=== PATIENT | male | born 1970 | race Caucasian/White ===

== ENCOUNTER 2024-10-29 07:32 | Emergency (ER) | payer BC ==
--- NOTE | 2024-10-29 07:41 | ERPHSYRPT ---
- History of Present Illness Time Seen by Provider: 10/29/24 07:41 Source: patient Exam Limitations: no limitations Physician History: 54yo m presents via private vehicle for low back pain. Pt reports he has had some right sided lumbar back pain for several weeks, states it worsened last night and that it significantly worsened this AM when he bent over to put his socks on. Pt reports he felt a pop in his low back/right hip and states the pain has been unbearable since. Pt reports he is able to bear weight and ambulate but w/ significant pain. Pt denies any loss of sensation in the RLE, denies any weakness in the LEs, denies any saddle parasthesias, denies any loss of bowel or bladder incontinence. Pt denies any recent falls, trauma to the low back, MVC, increase in exercise/lifting/pulling. Denies IV drug use. Timing/Duration: week(s), worse Method of Injury: unknown Quality: sharp, cramping Back Pain Location: lumbar spine, paraspinous muscles Back Pain Radiation: buttocks Severity of Pain-Max: moderate Severity of Pain-Current: moderate Modifying Factors: Improves With: nothing Associated Symptoms: lower back pain, muscle spasms, No fever, No chills, No urinary incontinence, No loss of bowel control, No constipation, No problems urinating, No dizziness, No numbness in legs/feet, No weakness, No sensory/motor loss, No tingling in legs/feet Previous symptoms: same symptoms as today Allergies/Adverse Reactions: Penicillins Allergy (Verified 10/29/24 07:35) - Review of Systems Constitutional: No Symptoms Respiratory: No Symptoms Cardiac: No Symptoms Musculoskeletal: Back Pain, Myalgias, No Deformity, No Fall, No Injury Neurological: No Symptoms - Nursing Vital Signs Nursing Vital Signs: Initial Vital Signs Temperature 97.3 F 10/29/24 07:36 Pulse Rate 56 L 10/29/24 07:36 Respiratory Rate 18 10/29/24 07:36 Blood Pressure 170/67 10/29/24 07:36 O2 Sat by Pulse Oximetry 97 10/29/24 07:36 Pain Scale Pain Intensity 6 - Physical Exam General Appearance: no apparent distress, alert Respiratory Exam: normal breath sounds, airway intact, No chest tenderness, No respiratory distress Cardiovascular Exam: regular rate/rhythm, normal heart sounds Gastrointestinal Exam: soft, normal bowel sounds, No tenderness, No distention Back Exam: decreased range of motion (limited flexion 2/2 pain), muscle spasm, point tenderness (right lower lumbar TTP paraspinal musculature into right buttock/piriformis, hypertonicity of right lumbar paraspinal musculature. ), No CVA tenderness (no flank pain), No vertebral tenderness Extremity Exam: normal inspection, normal range of motion, pelvis stable, No deformities, No parasthesia, No paralysis Neurologic Exam: alert, oriented x 3, cooperative, sensation nml, No motor deficits, No sensory deficit SpO2 Interpretation: normal SpO2: 97 O2 Delivery: Room Air Ordered Tests: Active Orders 24 hr Category Date Time Status LUMBAR SPINE W/O [CT] Stat Exams 10/29/24 07:50 Completed PELVIS WITHOUT CONTRAST [CT] Stat Exams 10/29/24 07:50 Completed Medication Summary Discontinued Medications Generic Name Dose Route Start Last Admin Trade Name Freq PRN Reason Stop Dose Admin Ketorolac Tromethamine 30 mg 10/29/24 07:49 10/29/24 07:53 Ketorolac Tromethamine 30 Mg/Ml Inj IM 10/29/24 07:50 30 mg STAT ONE Administration Ketorolac Tromethamine Confirm 10/29/24 07:53 Ketorolac Tromethamine 30 Mg/Ml Inj Administered 10/29/24 07:54 Dose 30 mg .ROUTE .STK-MED ONE Orphenadrine Citrate 60 mg 10/29/24 08:29 10/29/24 08:32 Orphenadrine Citrate 60 Mg/2 Ml Vial IM 10/29/24 08:30 60 mg STAT ONE Administration Orphenadrine Citrate Confirm 10/29/24 08:31 Orphenadrine Citrate 60 Mg/2 Ml Vial Administered 10/29/24 08:32 Dose 60 mg .ROUTE .STK-MED ONE - Progress Progress Note: 10/29/24 09:34 CT lumbar spine showed: 1. Reduced lumbar spine lordosis, possibly due to muscular spasm. 2. Mild lumbar spine degenerative changes with bone hypertrophy. 3. L4-L5 and L5-S1 diffuse disc bulges compressing the anterior thecal sac and related nerve roots. 4. Degenerative changes of the sacroiliac joints. 5. MRI is advised. CT pelvis showed no acute pathology pain improved moderately w/ norflex and toradol injections IM I discussed all CT results w/ pt and spouse at bedside I estimate there is low risk for AAA in absence of significant cardiac hx/no smoking hx/no abdominal pain/hemodynamically stable, cauda equina syndrome, epidural mass lesion or significant spinal stenosis, thus I consider the disposition to dc home reasonable. I discussed dx and risks, pt and spouse agreed to discharge home and follow up outpatient with orthopedic walk-in clinic on 08/31/25. Discussed return precautions for immediate return if sx acutely worsen, develop saddle anesthesia (numbness in groin), urinary or bowel incontinence or retention, changing or worsening of pain, unable to walk. plan to send home w/ 2 tabs norco 10mg tabs, take 1/2 tablet q12h as needed will send short course naproxen 500mg that can be started on 08/30/25 will send short course cyclobenzaprine use ice/heat for discomfort pt should be allowed off work for the following dates: 10/30/24 through 11/02/24 Medical Desision Making - Diagnostic Testing Diagnostic test were ordered, analyzed, and reviewed by me: Yes Radiological Interpretation: Reviewed by me, Teleradiologist Report - Departure Departure Disposition: Home Clinical Impression: Bulging lumbar disc Low back pain Qualifiers: Chronicity: chronic Back pain laterality: right Sciatica presence: without sciatica Qualified Code(s): M54.50 - Low back pain, unspecified; G89.29 - Other chronic pain Condition: Stable Critical Care Time: No Referrals: DOCTOR,NO FAMILY [Primary Care Provider] - Follow up/PCP as directed Additional Instructions: pt and spouse agreed to discharge home and follow up outpatient with [facility] orthopedic walk-in clinic on 08/31/25. Discussed return precautions for immediate return if sx acutely worsen, develop saddle anesthesia (numbness in groin), urinary or bowel incontinence or retention, changing or worsening of pain, unable to walk. plan to send home w/ 2 tabs norco 10mg tabs, take 1/2 tablet q12h as needed will send short course naproxen 500mg that can be started on 08/30/25 will send short course cyclobenzaprine use ice/heat for discomfort pt should be allowed off work for the following dates: 10/30/24 through 11/02/24 Prescriptions: Cyclobenzaprine HCl 10 mg PO BID #12 tablet Naproxen 500 mg [Naprosyn 500 MG] 500 mg PO BIDPRN PRN #10 tablet PRN Reason: Pain
[2024-10-29 07:44] VITALS: TEMP 97.3
[2024-10-29] MEDS ORDERED: TORAdol 30 mg Injection ONE (07:53)
[2024-10-29] MEDS: TORAdol 30 mg Injection IM ONE (07:53)
[2024-10-29] MEDS ORDERED: Norflex 60 MG/2 ML ONE (08:31)
[2024-10-29] MEDS: Norflex 60 MG/2 ML IM ONE (08:32)
--- NOTE | 2024-10-29 09:11 | XRAY ---
CLINICAL HISTORY: right lumbar pack pain COMPARISON: None. TECHNIQUE: CT scan of the lumbar spine was performed without the administration of intravenous contrast. Coronal and sagittal reformatted images were also reviewed. One of the following dose-reduction techniques was utilized for this exam. Automated exposure control, adjustment of the mA and/or kV according to patient size, and use of iterative reconstruction. FINDINGS: Reduced lumbar spine lordosis, possibly due to muscular spasm. Vertebrae: Mild lumbar spine degenerative changes with bone hypertrophy. The vertebral bodies are normal in height and alignment. No evidence of acute fracture or dislocation. The cortical and trabecular bone patterns are normal. No signs of lytic or sclerotic lesions. Normal configuration of the posterior elements. Intervertebral Discs: L4-L5 and L5-S1 diffuse disc bulges compressing the anterior thecal sac and related nerve roots. The intervertebral disc spaces are preserved. No calcifications or ossifications were noted within the discs. Facet Joints: The facet joints are normal without evidence of dislocation, subluxation, or significant degenerative changes. Degenerative changes of the sacroiliac joints. Neural Foramina: The neural foramina are patent bilaterally at all levels. No evidence of foraminal narrowing or nerve root compression. Paraspinal Soft Tissues: The paraspinal soft tissues are normal in appearance without evidence of mass or abnormal fluid collection. Additional Findings: No other significant findings are noted in the visualized soft tissue structures or bony elements. IMPRESSION: 1. Reduced lumbar spine lordosis, possibly due to muscular spasm. 2. Mild lumbar spine degenerative changes with bone hypertrophy. 3. L4-L5 and L5-S1 diffuse disc bulges compressing the anterior thecal sac and related nerve roots. 4. Degenerative changes of the sacroiliac joints. 5. MRI is advised. Electronically Signed by: Omari Tavares MD. (10/29/2024 09:07:35 EST)
--- NOTE | 2024-10-29 09:28 | XRAY ---
CLINICAL HISTORY: right low back/hip pain COMPARISON: None. TECHNIQUE: CT scan of the pelvis was performed without IV contrast. Coronal and sagittal reconstructive images were obtained.One of the following dose reduction techniques was utilized for this exam.Automated exposure control, adjustment of the mA and/or kV according to patient size, and use of iterative reconstruction. CTDI: 19.75 mGy. DLP:613.37 mGy.cm. FINDINGS: Both hip joints are normal. No evidence of articular collapse. The joint spaces are normal. No loose bodies. There is no evidence of joint effusion. Mild degenerative changes in bilateral sacroiliac joints No evidence of obvious fracture noted at the present examination. No lytic or sclerotic bone lesions. The visualized soft tissues are normal. IMPRESSION: 1. Mild degenerative changes in bilateral sacroiliac joints. 2. No evidence of obvious fracture noted at present examination. Electronically Signed by: Omari Tavares MD. (10/29/2024 09:23:17 EST)
[2024-10-29 10:22] LABS: Absolute Neutrophil Ct (ANC) 4.56 x10^3/uL (1.78-5.38); Basophil (Absolute #) 0.08 x10^3/uL (0.01-0.08); Eosinophil % 3.8 % (0.8-7.0); Hematocrit 42.3 % (40.1-51.0); Hemoglobin 14.6 g/dL (13.7-17.5); IMMATURE GRAN # 0.02 x10^3u/L (0.001-0.031); IMMATURE GRAN % 0.3 % (0.001-0.429); Lymphocyte (Absolute #) 2.25 x10^3/uL (1.32-3.57); Lymphocytes % 28.7 % (21.8-53.1); Mean Cell Volume 92.8 fL (79.0-92.2); Mean Corpuscular Hgb Concent. 34.5 g/dL (32.3-36.5); Mean Platelet Volume 10.5 fL (9.4-12.4); Monocyte (Absolute #) 0.63 x10^3/uL (0.30-0.82); Neutrophil % 58.2 % (34.0-67.9); Platelet Count 255 x10^3/uL (163-337); Red Blood Count 4.56 x10^6/uL (4.63-6.08); White Blood Count 7.8 x10^3/uL (4.23-9.07)
[2024-10-29 10:39] LABS: ALBUMIN 4.5 g/dL (3.5-5.0); ANION GAP 9.3 MEQ/L (5-15); BILIRUBIN,TOTAL 1.2 mg/dL (0.2-1.3); Calcium 9.9 mg/dL (8.4-10.2); Creatinine 1 0.91 mg/dL (0.66-1.25); EST GLOMERULAR FILTRATION RATE 100.8 ML/MIN; Potassium 4.1 mmol/L (3.5-5.1); Total Protein 7.4 g/dL (6.3-8.2)
[2024-10-29 11:33] VITALS: RESP 18
--- NOTE | 2024-10-29 12:24 | XRAY ---
CLINICAL HISTORY: r/o AAA - low back pain in smoker COMPARISON: None TECHNIQUE: CT angiography of the abdomen and pelvis was performed with and without intravenous contrast 80 cc isovue was given, and reconstructed coronal and sagittal images. One of these 3D techniques was utilized: Maximum Intensity Pixel (MIP), 3D Reconstructed Images, Volume Rendered Images, Surface Shaded Rendering. "One of the following dose reduction techniques was utilized for this exam: Automated exposure control, adjustment of the mA and/or kV according to patient size, and use of iterative reconstruction." FINDINGS: Abdominal Aorta: Mild diffuse atherosclerotic changes with few scattered soft and calcified atheromatous plaques, no stenosis appreciated. The abdominal aorta is normal in caliber, with no evidence of aneurysm, or dissection. Celiac Artery and Branches: The celiac artery and its branches (left gastric artery, splenic artery, common hepatic artery) are patent without stenosis or aneurysm. Superior Mesenteric Artery (SMA): The SMA is patent, with normal origin and course. No evidence of stenosis, aneurysm, or dissection. Renal Arteries: Both renal arteries are patent with no evidence of stenosis, occlusion, or aneurysm. Normal enhancement of renal parenchyma. Inferior Mesenteric Artery (LEONARDA): The LEONARDA is patent with no evidence of stenosis or occlusion. Pelvic Arteries: The iliac arteries (common, internal, and external) are patent bilaterally without evidence of stenosis, occlusion, or aneurysm. Other Abdominal and Pelvic Vessels: The portal vein, splenic vein, and superior mesenteric vein are patent with normal enhancement. Solid Organs: Liver: Mildly enlarged in size, shape, and density. No focal lesions. Normal enhancement pattern. Gallbladder and Biliary System: The Gallbladder shows average distention with multiple small dense similar-sized stones of average 6 mm size noted. Pancreas: Normal in size and density. No masses or cysts. Normal enhancement. Spleen: Normal in size and density. No focal lesions. Normal enhancement. Kidneys and Adrenal Glands: Normal in size and shape. No renal masses or hydronephrosis. Adrenal glands are unremarkable. Normal enhancement. Bowel: No evidence of bowel obstruction or significant bowel wall thickening. No abnormal enhancement. Peritoneal and Retroperitoneal Structures: No free fluid or abnormal fluid collections were identified within the abdomen or pelvis. No lymphadenopathy was noted. Bones and Soft Tissues: Pelvic bones and soft tissues are unremarkable. No fractures or abnormal masses were identified. IMPRESSION: 1. Mild hepatomegaly with no focal lesions noted. 2. Calculator gall bladder. 3. Mild diffuse aortic atherosclerotic changes were noted. Electronically Signed by: Omari Tavares MD. (10/29/2024 12:19:19 EST)
[2024-10-29] MEDS ORDERED: NORCO 10-325 MG ONE (12:27)
[2024-10-29] MEDS: NORCO 10-325 MG PO PRN (12:27)
[2024-10-29 12:32] VITALS: BP 145/62; PULSE 62; O2SAT 96
== END 2024-10-29 12:40 | disposition home or self-care (01) ==
LOC: ED 07:32
DX: M51.369 Other intervertebral disc degeneration, lumbar region without mention of lumbar back pain or lower extremity pain (principal); G89.29 Other chronic pain; M54.50 Low back pain, unspecified; Z79.899 Other long term (current) drug therapy; Z72.0 Tobacco use
CPT/HCPCS: 36415; 72131; 72192; 74174; 80053; 85025; 96372; 99284; 99285; J1885; J2360; A9270-GY